=== PATIENT | male | born 1980 ===

== ENCOUNTER 2018-08-18 16:12 | Emergency (ER) | payer OTHER ==
[~2018-08-18] VITALS: Ht 172.7 cm; Wt 72.6 kg
[2018-08-18] MEDS ORDERED: OXYC5 (16:15)
== END 2018-08-18 17:50 | disposition home or self-care (01) ==
LOC: ER 16:12
DX: M79.632 Pain in left forearm (principal); V89.2XXA Person injured in unspecified motor-vehicle accident, traffic, initial encounter; Z79.891 Long term (current) use of opiate analgesic
CPT/HCPCS: 73090; 99284-25